=== PATIENT | female | born 1995 | race Caucasian/White ===

== ENCOUNTER 2020-06-17 10:01 | Outpatient (RCR) | payer BC, SELFPAY ==
[2020-06-17 11:34] LABS: Hematocrit 38.1 % (37.0-47.0)
[2020-06-17 11:50] LABS: Glucose 1 Hour PP 50gm Dose 142 mg/dL
[2020-06-17 12:30] LABS: HIV 1/2 Ab P24 Ag Result Negative (Negative)
[2020-06-17 13:02] LABS: Hepatitis C Virus Antibody Negative (Negative)
[2020-06-18 07:54] LABS: Rapid Plasma Reagin Non-Reactive (NonReactive)
[2020-06-18] MEDS: RHO(D) IMMUNE GLOBULIN 300 MCG/2 ML SYRINGE IM (16:42)
== END 2020-09-15 23:59 | disposition home or self-care (01) ==
LOC: ANHLAB 10:01
PROVIDERS: Visit Provider Obstetrics & Gynecology
DX: Z11.4 Encounter for screening for human immunodeficiency virus [HIV] (principal); Z29.13 Encounter for prophylactic Rho(D) immune globulin; O36.0130 Maternal care for anti-D [Rh] antibodies, third trimester, not applicable or unspecified; Z3A.00 Weeks of gestation of pregnancy not specified
CPT/HCPCS: 36415; 82947; 85014; 85018; 85461; 86592; 86703; 86803; 90384; 96372; G0432; J2790

== ENCOUNTER 2020-08-27 13:19 | Outpatient (CLI) | payer BC, SELFPAY ==
[2020-08-27] VITALS (7 sets, daily range): BP systolic 117–146; BP diastolic 81–97; PULSE 105–123; BMI 41.0
[2020-08-27 14:18] LABS: Basophils Absolute Auto 0.1 K/mm3 (0.0-0.1); Basophils Percent Auto 0.4 % (0.2-1.2); Eosinophils Absolute Auto 0.1 K/mm3 (0-0.3); Eosinophils Percent Auto 0.8 % (0-4.4); Hematocrit 39.6 % (37.0-47.0); Hemoglobin 13.5 g/dL (12.0-15.0); Immature Granulocyte Absolute 0.16 K/mm3 (0.00-0.031); Immature Granulocyte Percent A 1.3 % (0-0.5); Lymphocytes Absolute Auto 2.62 K/mm3 (0.9-3.2); Lymphocytes Percent Auto 21.9 % (18.3-44.2); Mean Corpuscular HGB Conc 34.1 g/dl (32-36); Mean Corpuscular Hemoglobin 30.7 pg (26-34); Mean Platelet Volume 10.2 fl (7.4-10.4); Monocytes Absolute Auto 0.8 K/mm3 (0.1-0.6); Monocytes Percent Auto 6.4 % (2.6-8.5); Neutrophils Absolute Auto 8.3 K/mm3 (1.3-6.7); Neutrophils Percent Auto 69.2 % (45.5-73.1); Platelet Count Result 222 k/mm3 (150-375); Red Cell Distribution Width 14.5 % (11.5-14.5)
[2020-08-27 14:25] LABS: Add Urine Microscopic? YES; Appearance Urine Cloudy (Clear); Bacteria Urine Trace /hpf; Bilirubin Urine Negative (Negative); Blood Urine Negative (Negative); Color Urine Yellow (Yellow); Glucose Urine UA Negative (Negative); Ketones Urine 1+ mg/dL (Negative); Leukocyte Esterase Ur 3+ LEU/UL (NEGATIVE); Mucus Urine Rare /lpf; Nitrate Urine Negative (Negative); Protein Urine 1+ mg/dL (Negative); RBC Urine 0-2 /hpf (0-2); Specific Grav Ur 1.015 (1.001-1.035); Squamous Epithelial Cell Urine Many /hpf (Few); Urobilinogen Urine Negative mg/dL (<2.0)
[2020-08-27 14:28] LABS: Alanine Aminotransferase 16 U/L (4-35); Albumin Level 3.6 g/dL (3.5-5.1); Alkaline Phosphatase 196 U/L (38-126); Anion Gap 9 mmol/L (8-16); Aspartate Amino Transferase 34 U/L (14-36); Bilirubin,Total 0.4 mg/dL (0.2-1.3); Blood Urea Nitrogen 6 mg/dL (7-17); Calcium 9.2 mg/dL (8.4-10.2); Carbon Dioxide 20 mmol/L (22-30); Chloride 106 mmol/L (98-107); Estimated Glomerular Filt Rate > 60; Glucose 77 mg/dL (65-105); Potassium 4.1 mmol/L (3.4-5.0); Sodium 135 mmol/L (137-145); Uric Acid 4.8 mg/dL (2.5-7.5)
[2020-08-27 14:31] LABS: Creatinine Urine 75.6 mg/dL; Total Protein Urine Random 10 mg/dL; Ur Ttl Prot Creatinine Ratio 0.13 mg/mg (0-0.20)
[2020-08-27] MEDS: ACETAMINOPHEN 500 MG TABLET 1000 MG PO (15:15)
--- NOTE | 2020-08-27 16:49 | WPDANESEPP ---
Anes - Eval Pre Procedure Date/Time: 08/27/20 16:49 Pre Op Diagnosis: pih Patient Data Age: 25 Gender: F Height: 5 ft 3 in Weight: 105 kg Last Vital Signs Pulse 106 H 08/27/20 16:01 BP 134/81 08/27/20 16:01 Allergies Allergy/AdvReac Type Severity Reaction Status Date / Time Sulfa (Sulfonamide Allergy Hives Verified 08/11/20 15:25 Antibiotics) Home Medications Medication Instructions Recorded Confirmed Type prenat.vits,balbina,guy-[id number]-[id number] 1 tablet PO DAILY 08/11/20 08/11/20 History [ #2] sertraline 50 mg PO DAILY 08/11/20 08/11/20 History Laboratory Tests 08/27/20 08/27/20 08/27/20 13:55 13:55 13:55 WBC 12.0 K/mm3 H K/mm3 (4.5-10.0) RBC 4.40 M/mm3 M/mm3 (4.2-5.4) Hgb 13.5 g/dL g/dL (12.0-15.0) Hct 39.6 % % (37.0-47.0) MCV 90.0 fl fl (80-100) MCH 30.7 pg pg (26-34) MCHC 34.1 g/dl g/dl (32-36) RDW 14.5 % % (11.5-14.5) Plt Count 222 k/mm3 k/mm3 (150-375) MPV 10.2 fl fl (7.4-10.4) Immature Gran % (Auto) 1.3 % H % (0-0.5) Neut % (Auto) 69.2 % % (45.5-73.1) Lymph % (Auto) 21.9 % % (18.3-44.2) [place] % (Auto) 6.4 % % (2.6-8.5) Eos % (Auto) 0.8 % % (0-4.4) Baso % (Auto) 0.4 % % (0.2-1.2) Lymph # (Auto) 2.62 K/mm3 K/mm3 (0.9-3.2) [place] # (Auto) 0.8 K/mm3 H K/mm3 (0.1-0.6) Eos # (Auto) 0.1 K/mm3 K/mm3 (0-0.3) Baso # (Auto) 0.1 K/mm3 K/mm3 (0.0-0.1) Abs Immat Gran (auto) 0.16 K/mm3 H K/mm3 (0.00-0.031) Absolute Neuts (auto) 8.3 K/mm3 H K/mm3 (1.3-6.7) Absolute Nucleated RBC 0.0 K/mm3 K/mm3 (0.0-0.012) Nucleated RBC % 0.0 % % (0.0-0.2) Sodium Potassium Chloride Carbon Dioxide Anion Gap BUN Creatinine Estim Creat Clear Calc Estimated GFR Glucose Uric Acid Calcium Total Bilirubin AST ALT Alkaline Phosphatase Total Protein Albumin Urine Color Yellow (Yellow) Urine Appearance Cloudy H (Clear) Urine pH 7.0 (5.0-9.0) Ur Specific [place] 1.015 (1.001-1.035) Urine Protein 1+ mg/dL H mg/dL (Negative) Urine Glucose (UA) Negative mg/dL mg/dL (Negative) Urine Ketones 1+ mg/dL H mg/dL (Negative) Ur Blood (Man) Negative (Negative) Urine Nitrate Negative (Negative) Urine Bilirubin Negative (Negative) Urine Urobilinogen Negative mg/dL mg/dL (<2.0) Ur Leukocyte Esterase 3+ LEANDRO/UL H LEANDRO/UL (NEGATIVE) Urine RBC 0-2 /hpf /hpf (0-2) Urine WBC 10-15 /hpf H /hpf (0-3) Ur Squamous Epith Cells Many /hpf H /hpf (Few) Urine Bacteria Trace /hpf /hpf Urine Mucus Rare /lpf /lpf U Random Total Protein 10 mg/dL mg/dL Urine Creatinine 75.6 mg/dL mg/dL Protein/Creat Ratio 2 0.13 mg/mg mg/mg (0-0.20) 08/27/20 13:55 WBC RBC Hgb Hct MCV MCH MCHC RDW Plt Count MPV Immature Gran % (Auto) Neut % (Auto) Lymph % (Auto) [place] % (Auto) Eos % (Auto) Baso % (Auto) Lymph # (Auto) [place] # (Auto) Eos # (Auto) Baso # (Auto) Abs Immat Gran (auto) Absolute Neuts (auto) Absolute Nucleated RBC Nucleated RBC % Sodium 135 mmol/L L mmol/L (137-145) Potassium 4.1 mmol/L mmol/L (3.4-5.0) Chloride 106 mmol/L mmol/L (98-107) Carbon Dioxide 20 mmol/L L mmol/L (22-30) Anion Gap 9 mmol/L mmol/L (8-16) BUN 6 mg/dL L mg/dL (
== END 2020-08-27 18:00 | disposition home or self-care (01) ==
LOC: ANHOBOP 13:42 → ANHLDR 13:42
PROVIDERS: Visit Provider Obstetrics & Gynecology
DX: O13.9 Gestational [pregnancy-induced] hypertension without significant proteinuria, unspecified trimester (principal); Z3A.00 Weeks of gestation of pregnancy not specified
CPT/HCPCS: 36415; 80053; 81001; 82570; 84156; 84550; 85025; 87086; 99199; A9270

== ENCOUNTER 2020-09-02 10:25 | Inpatient (IN) | payer BC, SELFPAY ==
[2020-09-02] VITALS (173 sets, daily range): BP systolic 63–178; BP diastolic 40–138; PULSE 84–159; RESP 16–18; TEMP 36.2–36.7; O2SAT 87–100; BMI 40.6
--- NOTE | 2020-09-02 10:45 | LDADM ---
This patient, Briana Zimmer, was admitted to Labor/Delivery/Recovery 109 on 09/02/20 at 10:25. Plans for labor, pain management and were discussed with patient. Patient/family oriented to hospital policies and general routines including ID bracelet, bed and alarms, visiting hours, pain management, procedures, bathroom and other care routines, personal items, smoking policy, room service/diet and guest tray routines, security routines, and visiting hours. Patient/Family are encouraged to report perceived risks to care and to ask questions if they do not understand what they are told or what they should do. See OBIX for further documentation.
[2020-09-02] MEDS: LACTATED RINGERS 1,000 ML 125 ML IV CONT ×3 (11:06→14:54)
[2020-09-02] MEDS: OXYTOCIN 30 UNITS/NS 500 ML 30 UNITS/500 ML BAG 6 UNITS IV CONT (11:10)
[2020-09-02 11:23] LABS: Basophils Percent Auto 0.3 % (0.2-1.2); Eosinophils Absolute Auto 0.1 K/mm3 (0-0.3); Eosinophils Percent Auto 0.7 % (0-4.4); Hematocrit 38.1 % (37.0-47.0); Hemoglobin 13.1 g/dL (12.0-15.0); Immature Granulocyte Absolute 0.16 K/mm3 (0.00-0.031); Immature Granulocyte Percent A 1.2 % (0-0.5); Lymphocytes Absolute Auto 3.22 K/mm3 (0.9-3.2); Lymphocytes Percent Auto 24.7 % (18.3-44.2); Mean Corpuscular HGB Conc 34.4 g/dl (32-36); Mean Corpuscular Hemoglobin 30.6 pg (26-34); Mean Platelet Volume 10.4 fl (7.4-10.4); Monocytes Absolute Auto 0.8 K/mm3 (0.1-0.6); Monocytes Percent Auto 6.1 % (2.6-8.5); Neutrophils Absolute Auto 8.7 K/mm3 (1.3-6.7); Platelet Count Result 250 k/mm3 (150-375); Red Blood Count 4.28 M/mm3 (4.2-5.4); Red Cell Distribution Width 14.5 % (11.5-14.5)
--- NOTE | 2020-09-02 12:18 | WPDOBADMIT ---
Obstetrics - Admit Note Admission Note: record reviewed. No pertinent additions to the history and/or any subsequent changes in the physical findings that are not consistent with the expected course of the were found. Additions to the history and/or subsequent changes in the physical findings follow. Essential primip at 39 weeks for IOL. Cervix 4/50/-3, head well applied, AROM clear. FHT 140 and reactive no decels. GBS neg. Pitocin per protocol.
--- NOTE | 2020-09-02 13:36 | WPDANESEPP ---
Anes - Eval Pre Procedure Procedure: Labor epidural Date/Time: 09/02/20 13:36 Surgeon: mikael Preop Diagnosis: Abd pain with contractions Pre Op Diagnosis: ind Patient Data Age: 25 Gender: F Height: 5 ft 3 in Weight: 104 kg Last Vital Signs Temp 98 F 09/02/20 11:30 Pulse 99 09/02/20 13:31 BP 129/85 09/02/20 13:31 Allergies Allergy/AdvReac Type Severity Reaction Status Date / Time Sulfa (Sulfonamide Allergy Hives Verified 08/11/20 15:25 Antibiotics) Home Medications Medication Instructions Recorded Confirmed Type prenat.vits,balbina,[id number]-[id number] 1 tablet PO DAILY 08/11/20 09/02/20 History [ #2] sertraline 50 mg PO DAILY 08/11/20 09/02/20 History Laboratory Tests 09/02/20 09/02/20 09/02/20 10:54 10:54 10:54 WBC 13.0 K/mm3 H K/mm3 (4.5-10.0) RBC 4.28 M/mm3 M/mm3 (4.2-5.4) Hgb 13.1 g/dL g/dL (12.0-15.0) Hct 38.1 % % (37.0-47.0) MCV 89.0 fl fl (80-100) MCH 30.6 pg pg (26-34) MCHC 34.4 g/dl g/dl (32-36) RDW 14.5 % % (11.5-14.5) Plt Count 250 k/mm3 k/mm3 (150-375) MPV 10.4 fl fl (7.4-10.4) Immature Gran % (Auto) 1.2 % H % (0-0.5) Neut % (Auto) 67.0 % % (45.5-73.1) Lymph % (Auto) 24.7 % % (18.3-44.2) [place] % (Auto) 6.1 % % (2.6-8.5) Eos % (Auto) 0.7 % % (0-4.4) Baso % (Auto) 0.3 % % (0.2-1.2) Lymph # (Auto) 3.22 K/mm3 H K/mm3 (0.9-3.2) [place] # (Auto) 0.8 K/mm3 H K/mm3 (0.1-0.6) Eos # (Auto) 0.1 K/mm3 K/mm3 (0-0.3) Baso # (Auto) 0.0 K/mm3 K/mm3 (0.0-0.1) Abs Immat Gran (auto) 0.16 K/mm3 H K/mm3 (0.00-0.031) Absolute Neuts (auto) 8.7 K/mm3 H K/mm3 (1.3-6.7) Absolute Nucleated RBC 0.0 K/mm3 K/mm3 (0.0-0.012) Nucleated RBC % 0.0 % % (0.0-0.2) RPR Pending Blood Type O Negative Antibody Screen Negative Patient hx anesthesia problems: none Family hx anesthesia problems: none PMFSH Past Medical History Medical History Anxiety and depression Hx of migraines Morbid obesity Obesity PIH ( induced hypertension) and not yet delivered Family History Family History Mother Anxiety Depression Hypertension Grandparent Breast cancer in female Social History Social History Smoking status: Never smoker Substance use: never Spiritual care concerns: No Exam Day of Procedure 09/02/20 13:36 Patient weight: morbidly obese Airway: Mallampati scale class II Neurological: alert and oriented
[2020-09-02 18:23] LABS: Rapid Plasma Reagin Non-Reactive (NonReactive)
[2020-09-02] MEDS: ONDANSETRON INJ 4 MG/2 ML VIAL IV PUSH (21:14)
[2020-09-03] VITALS (56 sets, daily range): BP systolic 105–144; BP diastolic 52–119; PULSE 93–148; RESP 14–18; TEMP 35.9–36.9; O2SAT 94–100
--- NOTE | 2020-09-03 02:50 | PM.OBPRVD ---
OB - Delivery Note Procedure Delivery date: 09/03/20 Procedure: events: Labor Induction Intrapartal events: None Induction method: AROM and per pitocin protocol Delivery monitor: external FHT and internal uterine Route of delivery: Episiotomy description: None Laceration Description: Perineal - 2nd Degree and Vaginal - 1st Degree Delivery repair: vicryl Specimen: No Quantitative Blood Loss (ml): 600 Anesthesia type: Epidural Disposition: floor Narrative: With adequate expulsive efforts by the mother, the baby's head was delivered OA. The baby's anterior shoulder was delivered under the pubic symphysis without difficulty. The posterior shoulder and the rest of the baby delivered without difficulty. The infant was placed on the mothers chest and suctioned and stimulated. The cord was clamped and cut after 30 seconds. Mother and baby both stable. Baby Date of : 09/03/20 Time of : 02:21 Weeks of gestation at delivery: 39 gender: Male Weight (pounds): 8 Weight (ounces): 1 presentation: vertex Placenta delivery description: Spontaneous cord vessel description: 3 Vessels and Delayed Cord Clamping score one minute: 9 score five minutes: 10
[2020-09-03] MEDS: OXYTOCIN 30 UNITS/NS 500 ML 30 UNITS/500 ML BAG 125 UNITS IV CONT (03:04)
[2020-09-03] MEDS: IBUPROFEN 600 MG TABLET PO ×4 (03:40→22:54)
[2020-09-03] MEDS: BENZOCAINE 20% AER SPR (*SP) 56 GM CAN 1 SPRAY TOPICAL (04:34)
[2020-09-03] MEDS: WITCH HAZEL 40 PADS 1 PAD TOPICAL (04:34)
--- NOTE | 2020-09-03 04:48 | OBPPTRN ---
Patient transferred to post room #290 via wheelchair. Support person present. Oriented to unit, room, information board, rooming in, admission packet and security measures. Patient verbalizes understanding. with patient.
[2020-09-03] MEDS: SERTRALINE HCL 50 MG TABLET PO (10:02)
[2020-09-03] MEDS: MULTIVIT/MIN/PREN/FOL AC/IRON TABLET 1 TAB PO (10:02)
--- NOTE | 2020-09-03 12:30 | PC.NURSE ---
Mother called out for assist with feeding. mother reports infant is latching to right breast and refusing left. Assured mother this is normal the first few days and continue to work on left latch. Left nipple is slightly larger than right and has less profile. Suggested mother roll at nipple before attempting latch. Nipple would stimulate easily. Reviewed infant feeding cues, frequencies, duration of feedings, feeding elimination flow sheet, and signs of adequate intake. Demonstrated stimulation techniques to wake for feeding. Assisted with infant to breast. Reviewed positioning/alignment in cross cradle, holding breast in ?U? hold and guided asymmetrical latch on. Several attempts before infant able to latch correctly. nursed eagerly, with steady draws and frequent swallowing noted. Reviewed signs of a correct latch, effective nursing and suck swallow ratio. Infant would slip to shallow latch, mother reports tenderness. Demonstrated how to adjust latch more deeply while feeding. Mother reports she can feel change in latch and has no tenderness. Nipple care reviewed of lanolin after feedings, warm compresses as needed. Suggested mother stimulate while feeding to increase stimulate, increase intake and to assist with maintaining deep latch. Instructed mother to call out for RN assistance if she is unable to latch infant for feeding or she has discomfort with nursing. Instructed feeding should be initiated three hours from start of last feeding or if feeding cues are noted before. Mother voiced understanding of information shared.
[2020-09-03] MEDS: DOCUSATE SODIUM 100 MG CAPSULE PO (16:39)
[2020-09-04 05:23] LABS: Hematocrit 26.7 % (37.0-47.0)
--- NOTE | 2020-09-04 07:50 | PM.OBPNVD ---
OB - PN: Subj Subjective Date/time seen: 09/04/20 07:50 Patient comments: no complaints and pain well controlled baby status: doing well and nursing well [place] feeding status: exclusively breast feeding Narrative: would like DC home today. OB - PN: Obj Data Labs CBC & Chem 7: 09/04/20 03:23 Labs: Laboratory Results - last 24 hr 09/04/20 09/04/20 03:23 03:23 Hgb 9.0 L D Hct 26.7 L Blood Type O Negative Antibody Screen TNP Screen Negative Baby's Blood Type O pos Baby's KEEGAN Negative Doses of RhIg Required 1 OB - PN A/P Plan day: 1 Plan: routine care and discharge home Time Spent With Patient Time: Total time spent is greater than 50% in coordination of care (as documented) at patient's floor/unit and/or counseling patient: Time with patient: less than 15 minutes Exam Narrative: Exam Narrative: NAD abdomen soft, nontender, fundus firm below the umbilicus Extremities nontender, 1+ edema
--- NOTE | 2020-09-04 07:52 | P.DS_ITS ---
DS: Admitting Diagnosis Admitting Diagnosis Admitting Diagnosis: term IUP DS: Discharge Diagnosis Discharge Diagnosis (1) , delivered: Code(s): O80 - Encounter for full-term uncomplicated delivery Status: Acute OB - DS: Summary OB Procedures : Ultrasound OB Procedures Intrapartum: Spontaneous Vag Delivery OB Procedures: : None Peripartum Data Delivery Method: Natural Vaginal Laceration Description: Perineal - 2nd Degree and Vaginal - 1st Degree complications: none Status at Discharge Functional status at discharge: independent ambulation Time Spent with Patient Time attestation: Total time spent providing and/or coordinating discharge services: DS: Data Data Completed and Pending Labs on day of discharge: Labs from last 24 hours 09/04/20 09/04/20 03:23 03:23 Hgb 9.0 L D Hct 26.7 L Blood Type O Negative Antibody Screen TNP Screen Negative Baby's Blood Type O pos Baby's KEEGAN Negative Doses of RhIg Required 1 Discharge Plan Discharge Attending physician on discharge: Ashanti Herr Discharging Clinician: Ashanti Herr Anticipated Discharge Date/Time: 09/04/20 15:00 Patient Disposition: Home, Self-Care Activity: may shower and pelvic rest Diet: as tolerated Patient Instructions: Antibiotic Form Stand Alone Forms: General Discharge Information Follow-up/Referrals: Ashanti Herr MD [Physician] - (4 weeks) Discharge Medications: Continued sertraline 50 mg Tablet 50 mg PO DAILY RF: 0 #2 Tablet 1 tablet PO DAILY RF: 0 Date of admission: 09/02/20 10:25 Primary Care Provider: PHYSICIAN,MATERIALS ENGINEERING TECHNICIAN Admitting Provider: Ashanti Herr Attending physician on admission: Ashanti Herr Condition: Stable
[2020-09-04 08:30] VITALS: BP 114/69; PULSE 106; RESP 16; TEMP 36.8; O2SAT 99
[2020-09-04] MEDS: POLYSACCHARIDE IRON COMPLEX 150 MG CAPSULE PO (10:00)
[2020-09-04] MEDS: DOCUSATE SODIUM 100 MG CAPSULE PO (10:00)
[2020-09-04] MEDS: MULTIVIT/MIN/PREN/FOL AC/IRON TABLET 1 TAB PO (10:01)
[2020-09-04] MEDS: SERTRALINE HCL 50 MG TABLET PO (10:01)
[2020-09-04] MEDS: IBUPROFEN 600 MG TABLET PO (10:01)
--- NOTE | 2020-09-04 10:31 | WPDANLDPN2 ---
Anes-Prog Note L&D Date/Time: 09/04/20 10:31 Comfortable throughout: labor and delivery Neuraxial method: epidural Epidural/Spinal procedure site: clean & non-tender Neuro status: Neuro function grossly intact. Cardiovascular status: normal Respiratory status: normal Airway patency: baseline Mental status: baseline Post-Op hydration status: normal Vital Signs: Last Vital Signs Temp 35.9 C L 09/03/20 23:00 Pulse 109 H 09/03/20 23:00 Resp 16 09/03/20 23:00 BP 112/61 09/03/20 23:00 Pulse Ox 98 09/03/20 23:00 Pain score (VAS): 04/12 Post-procedural complaints: none Patient feedback: Patient satisfied with anesthetic care.
[2020-09-04] MEDS: RHO(D) IMMUNE GLOBULIN 300 MCG/2 ML SYRINGE IM (15:45)
[2020-09-05 09:47] VITALS: BP 130/86; PULSE 103; RESP 20; TEMP 37.2; O2SAT 100
== END 2020-09-04 17:13 | disposition home or self-care (01) | DRG 807 ==
LOC: ANHLDR 10:28 → ANHOB2 09-03 05:11
PROVIDERS: Admitting Provider Obstetrics & Gynecology; Visit Provider Obstetrics & Gynecology
DX: O76 Abnormality in fetal heart rate and rhythm complicating labor and delivery (principal); Z37.0 Single live birth; O70.1 Second degree perineal laceration during delivery; Z3A.39 39 weeks gestation of pregnancy
CPT/HCPCS: 36415; 85014; 85018; 85025; 85461; 86592; 86850; 86900; 86901; 90384; A9270; J2405; J2590; J2790; J2795; J7120

== ENCOUNTER 2021-11-22 07:54 | Outpatient (CLI) | payer BC, SELFPAY ==
[2021-11-22 09:20] LABS: Hematocrit 37.4 % (37.0-47.0); Hemoglobin 12.6 g/dL (12.0-15.0)
[2021-11-22 09:40] LABS: Glucose 1 Hour PP 50gm Dose 156 mg/dL
[2021-11-22 10:12] LABS: HIV 1/2 Ab P24 Ag Result Negative (Negative)
[2021-11-24] MEDS: RHO(D) IMMUNE GLOBULIN 300 MCG/2 ML SYRINGE IM (09:14)
== END 2021-11-22 07:55 | disposition home or self-care (01) ==
LOC: ANHLAB 07:58
PROVIDERS: Visit Provider Obstetrics & Gynecology
DX: Z36.89 Encounter for other specified antenatal screening (principal); O36.0130 Maternal care for anti-D [Rh] antibodies, third trimester, not applicable or unspecified; Z3A.00 Weeks of gestation of pregnancy not specified
CPT/HCPCS: 36415; 82947; 85014; 85018; 85461; 86703; 90384; 96372; G0432; J2790

== ENCOUNTER 2022-02-07 05:56 | Inpatient (IN) | payer BC, SELFPAY ==
[2022-02-07] VITALS (91 sets, daily range): BP systolic 70–129; BP diastolic 27–95; PULSE 72–157; RESP 16; TEMP 35.9–37.7; O2SAT 93–100; BMI 41.7
[2022-02-07] MEDS: LACTATED RINGERS 1,000 ML 125 ML IV CONT (06:53)
[2022-02-07 06:54] LABS: Basophils Absolute Auto 0.1 K/mm3 (0.0-0.1); Basophils Percent Auto 0.4 % (0.2-1.2); Eosinophils Absolute Auto 0.1 K/mm3 (0-0.3); Eosinophils Percent Auto 0.5 % (0-4.4); Hematocrit 38.7 % (37.0-47.0); Hemoglobin 13.3 g/dL (12.0-15.0); Immature Granulocyte Absolute 0.16 K/mm3 (0.00-0.031); Immature Granulocyte Percent A 1.2 % (0-0.5); Lymphocytes Absolute Auto 2.74 K/mm3 (0.9-3.2); Lymphocytes Percent Auto 20.2 % (18.3-44.2); Mean Corpuscular HGB Conc 34.4 g/dl (32-36); Mean Corpuscular Hemoglobin 31.4 pg (26-34); Mean Corpuscular Volume 91.3 fl (80-100); Mean Platelet Volume 9.8 fl (7.4-10.4); Monocytes Absolute Auto 0.9 K/mm3 (0.1-0.6); Monocytes Percent Auto 6.5 % (2.6-8.5); Neutrophils Absolute Auto 9.6 K/mm3 (1.3-6.7); Neutrophils Percent Auto 71.2 % (45.5-73.1); Platelet Count Result 225 k/mm3 (150-375); Red Blood Count 4.24 M/mm3 (4.2-5.4); White Blood Count 13.5 K/mm3 (4.5-10.0)
[2022-02-07] MEDS: OXYTOCIN 30 UNITS/NS 500 ML 30 UNITS/500 ML BAG IV CONT (06:58)
--- NOTE | 2022-02-07 07:15 | LDADM ---
This patient, Briana Zimmer, was admitted to Labor/Delivery/Recovery 107 on 02/07/22 at 05:56. Plans for labor, pain management and were discussed with patient. Patient/family oriented to hospital policies and general routines including ID bracelet, bed and alarms, visiting hours, pain management, procedures, bathroom and other care routines, personal items, smoking policy, room service/diet and guest tray routines, security routines, and visiting hours. Patient/Family are encouraged to report perceived risks to care and to ask questions if they do not understand what they are told or what they should do. See OBIX for further documentation.
--- NOTE | 2022-02-07 07:35 | PM.IMHP ---
H&P: HPI History of Present Illness Date/Time: 02/07/22 07:35 Chief Complaint: IOL Narrative: Briana is a 27yo at 39.1 for IOL, elective. complicated by obesity, short interval , anxiety/depression controlled well, and had polyhydramnios, most recently high normal VILMA. GBS neg. PMFSH Past Medical History Medical History Anxiety and depression Hx of migraines Morbid obesity Obesity PIH ( induced hypertension) and not yet delivered Family History Family History Mother Anxiety Depression Hypertension Grandparent Breast cancer in female Social History Social History Smoking status: Never smoker Second hand tobacco smoke exposure: No Substance use: former Other substance usage details: First trimester Spiritual care concerns: No Meds Home Medications and Allergies Home Medications Medication Instructions Recorded Confirmed Type prenat.vits,balbina,xdy-vmtr-brwdf 1 tablet PO DAILY 08/11/20 02/07/22 History sertraline 50 mg tablet 100 mg PO DAILY 08/11/20 02/07/22 History Allergies Allergy/AdvReac Type Severity Reaction Status Date / Time Sulfa (Sulfonamide Allergy Hives Verified 08/11/20 15:25 Antibiotics) Vital Signs Vital Signs - 24 hr 02/07/22 06:52 02/07/22 07:00 Temperature 96.9 F L Pulse Rate 121 H 134 H Blood Pressure 126/72 123/80 H&P: Results Labs Labs: Short CBC 02/07/22 Range/Units 06:36 WBC 13.5 H (4.5-10.0) K/mm3 Hgb 13.3 (12.0-15.0) g/dL Hct 38.7 (37.0-47.0) % Plt Count 225 (150-375) k/mm3 Assessment and Plan Assessment and plan (1) Encounter for induction of labor: Code(s): Z34.90 - Encounter for supervision of normal , unspecified, unspecified trimester Status: Acute Plan pitocin per protocol 5cm, soft, ballotable AROM when engaged FHT category 1 anticipate
[2022-02-07] MEDS: LACTATED RINGERS 1,000 ML 999 ML IV CONT ×2 (10:05→10:51)
[2022-02-07 10:19] LABS: Amphetamine Screen Urine Negative (Negative); Barbiturate Screen Urine Negative (Negative); Benzodiazepines Screen Urine Negative (Negative); Cannabinoid Screen Urine Negative (Negative); Cocaine Screen Urine Negative (Negative); Methadone Screen Urine Negative (Negative); Opiate Screen Urine Negative (Negative); Phencyclidine Screen Urine Negative (Negative)
[2022-02-07] MEDS: PHENYLEPHRINE 1,000 MCG/10 ML SYRINGE 100 MCG IV PUSH (10:29)
--- NOTE | 2022-02-07 10:32 | WPDANESEPP ---
Anes - Eval Pre Procedure Procedure: Labor Epidural Date/Time: 02/07/22 10:32 Surgeon: Nemesio Preop Diagnosis: Labor Pain Pre Op Diagnosis: Induction of Labor Patient Data Age: 27 Gender: F Height: 1.57 m Weight: 103.5 kg Last Vital Signs Temp 36.4 C 02/07/22 09:39 Pulse 84 02/07/22 10:31 BP 100/51 L 02/07/22 10:31 Pulse Ox 96 02/07/22 10:26 Allergies Allergy/AdvReac Type Severity Reaction Status Date / Time Sulfa (Sulfonamide Allergy Hives Verified 08/11/20 15:25 Antibiotics) Home Medications Medication Instructions Recorded Confirmed Type prenat.vits,balbina,wrb-[id number]-[id number] 1 tablet PO DAILY 08/11/20 02/07/22 History sertraline 50 mg tablet 100 mg PO DAILY 08/11/20 02/07/22 History Laboratory Tests 02/07/22 02/07/22 02/07/22 06:36 06:36 06:36 WBC 13.5 K/mm3 H K/mm3 (4.5-10.0) RBC 4.24 M/mm3 M/mm3 (4.2-5.4) Hgb 13.3 g/dL g/dL (12.0-15.0) Hct 38.7 % % (37.0-47.0) MCV 91.3 fl fl (80-100) MCH 31.4 pg pg (26-34) MCHC 34.4 g/dl g/dl (32-36) RDW 15.0 % H % (11.5-14.5) Plt Count 225 k/mm3 k/mm3 (150-375) MPV 9.8 fl fl (7.4-10.4) Immature Gran % (Auto) 1.2 % H % (0-0.5) Neut % (Auto) 71.2 % % (45.5-73.1) Lymph % (Auto) 20.2 % % (18.3-44.2) [place] % (Auto) 6.5 % % (2.6-8.5) Eos % (Auto) 0.5 % % (0-4.4) Baso % (Auto) 0.4 % % (0.2-1.2) Lymph # (Auto) 2.74 K/mm3 K/mm3 (0.9-3.2) [place] # (Auto) 0.9 K/mm3 H K/mm3 (0.1-0.6) Eos # (Auto) 0.1 K/mm3 K/mm3 (0-0.3) Baso # (Auto) 0.1 K/mm3 K/mm3 (0.0-0.1) Abs Immat Gran (auto) 0.16 K/mm3 H K/mm3 (0.00-0.031) Absolute Neuts (auto) 9.6 K/mm3 H K/mm3 (1.3-6.7) Absolute Nucleated RBC 0.0 K/mm3 K/mm3 (0.0-0.012) Nucleated RBC % 0.0 % % (0.0-0.2) Urine Opiates Screen Urine Methadone Screen Ur Barbiturates Screen Ur Phencyclidine Scrn Ur Amphetamine Screen U Benzodiazepines Scrn Urine Cocaine Screen U Cannabinoids Screen RPR Pending Blood Type O Negative Antibody Screen Positive Antibody Identification Inconclusive Antigen Identification Cancelled KEEGAN, IgG Interpret Not Performed KEEGAN, Poly Interpret Neg KEEGAN, Complement Interp Not Performed 02/07/22 09:51 WBC RBC Hgb Hct MCV MCH MCHC RDW Plt Count MPV Immature Gran % (Auto) Neut % (Auto) Lymph % (Auto) [place] % (Auto) Eos % (Auto) Baso % (Auto) Lymph # (Auto) [place] # (Auto) Eos # (Auto) Baso # (Auto) Abs Immat Gran (auto) Absolute Neuts (auto) Absolute Nucleated RBC Nucleated RBC % Urine Opiates Screen Negative (Negative) Urine Methadone Screen Negative (Negative) Ur Barbiturates Screen Negative (Negative) Ur Phencyclidine Scrn Negative (Negative) Ur Amphetamine Screen Negative (Negative) U Benzodiazepines Scrn Negative (Negative) Urine Cocaine Screen Negative (Negative) U Cannabinoids Screen Negative (Negative) RPR Blood Type Antibody Screen Antibody Identification Antigen Identification KEEGAN, IgG Interpret KEEGAN, Poly Interpret KEEGAN, Complement Interp : gestational age (RM 02/13/22) Patient hx anesthesia problems: none Family hx anesthesia problems: none Results Review: All pre-operative results and documents have been reviewed as part of the pre-operative evaluation. [facility] Past Medical History Medical History (Reviewed 02/07/22 @ 10:32 by Kali Walters
[2022-02-07 12:13] LABS: Rapid Plasma Reagin Non-Reactive (NonReactive)
--- NOTE | 2022-02-07 13:02 | P.PCNOB_ITS ---
OB - Delivery Note Procedure Delivery date: 02/07/22 Procedure: Events: Polyhydramnios Induction method: Per Pitocin Protocol Delivery monitor: External FHT and External Uterine Route of delivery: Laceration Description: None Specimen: No Quantitative Blood Loss (ml): 75 Anesthesia type: Epidural Disposition: Floor Narrative: With adequate expulsive efforts by the mother, the baby's head was delivered OA. The baby's anterior shoulder was delivered under the pubic symphysis without difficulty. The posterior shoulder and the rest of the baby delivered without difficulty. The infant was placed on the mothers chest and suctioned and stimulated. The cord was clamped and cut after 30 seconds. Mother and baby both stable. [place] Baby Date of : 02/07/22 Time of : 12:51 Weeks of gestation at delivery: 39 gender: Female Weight (pounds): 8 Weight (ounces): 0 presentation: vertex Placenta delivery description: Spontaneous Cord Vessel Description: 3 Vessels, Nuchal Cord and Delayed Cord Clamping
[2022-02-07] MEDS: miSOPROStol 200 MCG TABLET 800 MCG RECTAL (13:50)
[2022-02-07] MEDS: OXYTOCIN 30 UNITS/NS 500 ML 30 UNITS/500 ML BAG 125 UNITS IV CONT (14:11)
[2022-02-07] MEDS: IBUPROFEN 600 MG TABLET PO ×2 (14:13→23:49)
--- NOTE | 2022-02-07 15:25 | PC.NURSE ---
Patient transferred to post room #285 via wheelchair. Support person present. Oriented to unit, room, information board, rooming in, admission packet and security measures. Patient verbalizes understanding.
[2022-02-08 04:20] VITALS: BP 111/65; PULSE 74; RESP 16; TEMP 36.3; O2SAT 100
[2022-02-08] MEDS: ACETAMINOPHEN 325 MG TABLET 650 MG PO (04:43)
[2022-02-08 06:02] LABS: Hematocrit 33.9 % (37.0-47.0); Hemoglobin 11.3 g/dL (12.0-15.0)
--- NOTE | 2022-02-08 07:17 | PM.OBPNVD ---
OB - PN: Subj Subjective Date/time seen: 02/08/22 07:17 Patient comments: no complaints and pain well controlled baby status: nursing well feeding status: exclusively breast feeding OB - PN: Obj Data Labs CBC & Chem 7: 02/08/22 04:38 Labs: Laboratory Results - last 24 hr 02/07/22 02/07/22 02/07/22 06:36 06:36 09:51 Hgb Hct Urine Opiates Screen Negative Urine Methadone Screen Negative Ur Barbiturates Screen Negative Ur Phencyclidine Scrn Negative Ur Amphetamine Screen Negative U Benzodiazepines Scrn Negative Urine Cocaine Screen Negative U Cannabinoids Screen Negative RPR Non-reactive Blood Type O Negative Antibody Screen Positive Antibody Identification Inconclusive Antigen Identification Cancelled KEEGAN, IgG Interpret Not Performed KEEGAN, Poly Interpret Neg KEEGAN, Complement Interp Not Performed 02/08/22 02/08/22 04:38 04:38 Hgb 11.3 L Hct 33.9 L Urine Opiates Screen Urine Methadone Screen Ur Barbiturates Screen Ur Phencyclidine Scrn Ur Amphetamine Screen U Benzodiazepines Scrn Urine Cocaine Screen U Cannabinoids Screen RPR Blood Type O Negative Antibody Screen Antibody Identification Antigen Identification KEEGAN, IgG Interpret KEEGAN, Poly Interpret KEEGAN, Complement Interp OB - PN A/P Assessment and Plan (1) , delivered: Code(s): O80 - Encounter for full-term uncomplicated delivery Status: Acute Plan day: 1 Plan: routine care Time Spent With Patient Time: Total time spent is greater than 50% in coordination of care (as documented) at patient's floor/unit and/or counseling patient: Time with patient: less than 15 minutes Exam Narrative: NAD abdomen soft, nontender, fundus firm below the umbilicus Extremities nontender, 1+ edema
[2022-02-08 07:40] VITALS: BP 110/67; PULSE 80; RESP 18; TEMP 37; O2SAT 100
--- NOTE | 2022-02-08 07:42 | WPDANLDPN2 ---
Anes-Prog Note L&D Date/Time: 02/08/22 07:42 Comfortable throughout: labor Neuraxial method: epidural Epidural/Spinal procedure site: clean & non-tender Neuro status: Neuro function grossly intact. Cardiovascular status: normal Respiratory status: normal Airway patency: baseline Mental status: baseline Post-Op hydration status: normal Vital Signs: Last Vital Signs Temp 97.3 F L 02/08/22 04:20 Pulse 74 02/08/22 04:20 Resp 16 02/08/22 04:20 BP 111/65 02/08/22 04:20 Pulse Ox 100 02/08/22 04:20 O2 Del Method Room Air 02/07/22 15:30 Pain score (VAS): 0-1 I/O: Intake & Output 02/07/22 02/07/22 02/08/22 15:59 23:59 07:59 Intake Total 3400 Output Total 424 Balance 2976 Patient feedback: Patient satisfied with anesthetic care.
[2022-02-08] MEDS: MULTIVIT/MIN/PREN/FOL AC/IRON TABLET 1 TAB PO (09:58)
[2022-02-08] MEDS: IBUPROFEN 600 MG TABLET PO ×2 (09:58→19:57)
[2022-02-08] MEDS: DOCUSATE SODIUM 100 MG CAPSULE PO (09:58)
--- NOTE | 2022-02-08 10:54 | PC.NURSE ---
[id number] Introductions were made, then consulted with patient to assess needs related to . Mother demonstrated feeding?her in the cradle position and denies pain. Resources provided for inpatient and outpatient services using mom and baby guide. Assessed mother's nipple due to the latch being less than 90 degrees. The underside of the nipple was slightly flatten. Mother works well with her infant. Mother encouraged to wait for the big, wide open gape and give a mouthful when she visualizes the optimal gape. Infant latched optimally to the left breast in cross cradle position. Education given to mother of how to visualize suck/swallow ratios and drinking at the breast. Infant was able to maintain latch without discomfort to mother. Nipple care reviewed with optimal latch and good positioning. Resources used to facilitate learning were used with the mom and baby guide. Mother voiced understanding of responsive feedings, stimulating with skin to skin, hand expressed colostrum, massage touch, talking to to encourage if it has been 2 -3 hours since the start of the last , to call if infant does not latch or there is discomfort with . Reported to the primary RN.
[2022-02-08 11:53] VITALS: BP 125/71; PULSE 94; RESP 16; TEMP 37.1; O2SAT 99
[2022-02-08] MEDS: RHO(D) IMMUNE GLOBULIN 300 MCG/2 ML SYRINGE IM (15:48)
[2022-02-08 19:50] VITALS: BP 130/94; PULSE 90; RESP 18; TEMP 36.8; O2SAT 97
[2022-02-09] MEDS: IBUPROFEN 600 MG TABLET PO ×2 (03:45→09:41)
--- NOTE | 2022-02-09 07:05 | PM.OBPNVD ---
OB - PN: Subj Subjective Date/time seen: 02/09/22 07:05 Patient comments: no complaints and pain well controlled baby status: doing well and nursing well [place] feeding status: exclusively breast feeding OB - PN: Obj Data Labs CBC & Chem 7: 02/08/22 04:38 Labs: Laboratory Results - last 24 hr 02/07/22 02/08/22 06:36 04:38 Blood Type O Negative O Negative Antibody Screen Positive Positive Antibody Identification Inconclusive Inconclusive Antigen Identification Cancelled Not Reportable KEEGAN, IgG Interpret Not Performed KEEGAN, Poly Interpret Neg Neg KEEGAN, Complement Interp Not Performed Screen Cancelled Negative Baby's Blood Type Cancelled O pos Baby's KEEGAN Cancelled Positive Doses of RhIg Required Cancelled 1 OB - PN A/P Assessment and Plan (1) , delivered: Code(s): O80 - Encounter for full-term uncomplicated delivery Status: Acute Plan day: 2 Plan: routine care and discharge home Time Spent With Patient Time: Total time spent is greater than 50% in coordination of care (as documented) at patient's floor/unit and/or counseling patient: Time with patient: less than 15 minutes Exam Narrative: NAD abdomen soft, nontender, fundus firm below the umbilicus Extremities nontender, 1+ edema
--- NOTE | 2022-02-09 07:09 | PM.OBDSVD ---
DS: Admitting Diagnosis Discharge Date 02/09/22 Admitting Diagnosis term DS: Discharge Diagnosis Discharge Diagnosis (1) , delivered: Code(s): O80 - Encounter for full-term uncomplicated delivery Status: Acute OB - DS: Summary Hospital Course Hospital Course: Briana was admitted for elective IOL. She proceeded to have an uncomplicated vaginal delivery and course. She was discharged home on PPD 2. OB Procedures : Ultrasound OB Procedures Intrapartum: Spontaneous Vag Delivery OB Procedures: : None Peripartum Data Delivery Method: Natural Vaginal Status at Discharge Functional status at discharge: independent ambulation Time Spent with Patient Time attestation: Total time spent providing and/or coordinating discharge services: Exam Narrative: NAD abdomen soft, appropriately tender Ext non tender, 1+ edema DS: Data Data Completed and Pending Labs on day of discharge: Labs from last 24 hours 02/08/22 02/07/22 04:38 06:36 Blood Type O Negative O Negative Antibody Screen Positive Positive Antibody Identification Inconclusive Inconclusive Antigen Identification Not Reportable Cancelled KEEGAN, IgG Interpret Not Performed KEEGAN, Poly Interpret Neg Neg KEEGAN, Complement Interp Not Performed Screen Negative Cancelled Baby's Blood Type O pos Cancelled Baby's KEEGAN Positive Cancelled Doses of RhIg Required 1 Cancelled Discharge Plan Discharge Attending physician on discharge: Ashanti Herr Discharging Clinician: Ashanti Herr Anticipated Discharge Date/Time: 02/09/22 07:07 Patient Disposition: Home, Self-Care Activity: pelvic rest Diet: regular Patient Instructions: Antibiotic Form Stand Alone Forms: General Discharge Information Follow-up/Referrals: Ashanti Herr MD [Physician] - 4 Weeks Discharge Medications: Continued sertraline 50 mg Tablet 100 mg PO DAILY prenat.vits,balbina,[id number] Tablet 1 tablet PO DAILY Date of admission: 02/07/22 05:56 Primary Care Provider: UNKNOWN,DOCTOR Admitting Provider: Ashanti Herr Attending physician on admission: Ashanti Herr Condition: Stable
[2022-02-09 07:39] VITALS: BP 130/86; PULSE 93; TEMP 36.8; O2SAT 99
[2022-02-09 09:32] VITALS: PULSE 93; RESP 18; O2SAT 99
--- NOTE | 2022-02-09 09:40 | PC.NURSE ---
On 02/09/22, the student, Rubin Fan, provided care and completed [facility] documentation on this patient. I have reviewed the student's documentation and agree with the findings.
[2022-02-09] MEDS: DOCUSATE SODIUM 100 MG CAPSULE PO (09:41)
[2022-02-09] MEDS: MULTIVIT/MIN/PREN/FOL AC/IRON TABLET 1 TAB PO (09:42)
--- NOTE | 2022-02-09 11:30 | PC.NURSE ---
Patient viewed the discharge video Mother & Baby Care, The First Two Weeks . Patient was given the opportunity and encouraged to ask questions. Patient verbalized understanding of information shared and has been given the mother/baby guide for home reference.
--- NOTE | 2022-02-09 12:18 | PC.NURSE ---
[id number] Mother led the conversation with her experience and plan to feed her so far and her ability to independently latch optimally without discomfort. Reminded parents to use good handwashing technique to prevent infection. Mother is feeding appropriately for growth of and understands stimulating to eat if needed. Infant has had appropriate feedings in the last 24 hours meets the outcomes for weight, output and jaundice at this time. Mother states she is confident to continue effectively her infant at home or when to call for assistance and denies any additional assistance or education at this time. Reinforced understanding of milk production, transition of milk, signs of adequate intake, prevention/relief of engorgement, responsive after visualizing feeding cues, the different methods of stimulating infant to breastfeed 2-3 hours after the start of the last feeding, community resources, medication information reviewed per [facility] and when to call a provider using the resource of the mom and baby guide/[facility] website. Mother voiced understanding of the education shared. Reported to the primary RN.
[2022-02-10 09:29] VITALS: BP 120/81; PULSE 98; RESP 20; TEMP 37.1; O2SAT 100
== END 2022-02-09 11:11 | disposition home or self-care (01) | DRG 807 ==
LOC: ANHLDR 06:01 → ANHOB2 15:29
PROVIDERS: Admitting Provider Obstetrics & Gynecology; Visit Provider Obstetrics & Gynecology
DX: O40.3XX0 Polyhydramnios, third trimester, not applicable or unspecified (principal); Z37.0 Single live birth; Z3A.39 39 weeks gestation of pregnancy; O69.81X0 Labor and delivery complicated by cord around neck, without compression, not applicable or unspecified; O99.214 Obesity complicating childbirth; E66.01 Morbid (severe) obesity due to excess calories; O99.344 Other mental disorders complicating childbirth; F41.8 Other specified anxiety disorders
CPT/HCPCS: 36415; 80307; 85014; 85018; 85025; 85461; 86592; 86850; 86880; 86900; 86901; 86902; 90384; A9270; J2370; J2590; J2790; J2795; J7120